=== PATIENT | female | born 1990 | race Caucasian/White ===

== ENCOUNTER 2018-03-18 17:26 | Emergency (ER) | payer OTHER ==
[2018-03-18 18:34] LABS: BASOPHILS # (AUTO) 0.1 10^3/uL (0.0-0.1); BASOPHILS % (AUTO) 0.8 %; EOSINOPHILS # (AUTO) 0.1 10^3/uL (0.0-0.7); EOSINOPHILS % (AUTO) 1.6 %; HGB - HEMOGLOBIN 13.2 g/dL (12.0-16.0); LYMPHOCYTES # (AUTO) 2.3 10^3/uL (1.5-3.5); LYMPHOCYTES % (AUTO) 27.4 %; MEAN CORPUSCULAR HEMOGLOBIN 32.5 pg (27.0-31.0); MEAN CORPUSCULAR HGB CONC 35.7 g/dL (32.0-36.0); MEAN CORPUSCULAR VOLUME 91.1 fL (81.0-99.0); MEAN PLATELET VOLUME 9.4 fL (7.9-10.8); MONOCYTES # (AUTO) 0.6 10^3/uL (0.0-1.0); MONOCYTES % (AUTO) 6.7 %; NEUTROPHILS # (AUTO) 5.4 10^3/uL (1.5-6.6); NEUTROPHILS % (AUTO) 63.5 %; PLT - PLATELET COUNT 215 10^3/uL (130-450); RED BLOOD COUNT 4.05 10^6/uL (4.20-5.40); RED CELL DISTRIBUTION WIDTH 13.3 % (12.0-15.0); WHITE BLOOD COUNT 8.4 x10^3/uL (4.8-10.8)
[2018-03-18 18:48] LABS: ALBUMIN 4.2 g/dL (3.2-5.5); ALBUMIN/GLOBULIN RATIO 1.7 (1.0-2.2); BILIRUBIN,TOTAL 1.5 mg/dL (0.2-1.0); CALCIUM 8.8 mg/dL (8.5-10.3); CREATININE 0.8 mg/dL (0.4-1.0); TOTAL PROTEIN 6.7 g/dL (6.7-8.2)
[2018-03-18 19:59] VITALS: BP 108/73
[2018-03-18] MEDS ORDERED: TRANEXAMIC ACID 1,000 MG/10 ML VIAL NAS STA (20:48)
--- NOTE | 2018-03-18 20:50 | ED Physician Documentation ---
PD HPI FEMALE - Stated complaint Stated Complaint: BLEEDING POST LEEP - Chief complaint Chief Complaint: General - History obtained from History obtained from: Patient - History of Present Illness Timing - onset: Today Timing - details: Gradual onset, Still present Associated symptoms: Vaginal bleeding Recently seen: Surgery - Additional information Additional information: Patient is a 27 year old female who is presenting to the emergency department for vaginal bleeding. patient had a recent LEEP procedure today and started bleeding this afternoon. Patient called the semiconductor lab technician doctor at the [facility] who stated some bleeding was normal. patient continued to bleed with about a pad an hour so came to the emergency department for evaluation. 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 - Present Medications Home Medications: Ambulatory Orders Medication Instructions Recorded Confirmed No Known Home Medications 03/18/18 03/18/18 - Allergies Allergies/Adverse Reactions: Allergies Allergy/AdvReac Type Severity Reaction Status Date / Time codeine Allergy Emesis Verified 03/18/18 18:15 - Social History Does the pt smoke?: No Smoking Status: Never smoker Does the pt drink ETOH?: No Does the pt have substance abuse?: No - Immunizations Immunizations are current?: Yes PD ED PE NORMAL - Vitals Vital signs reviewed: Yes - General General: Alert and oriented X 3 - HEENT HEENT: Atraumatic - Cardiac Cardiac: RRR - Respiratory Respiratory: No respiratory distress - Derm Derm: Normal color - Extremities Extremities: No deformity - Neuro Neuro: Alert and oriented X 3 PD ED PE EXPANDED - Female Female : Skin lesions, Vaginal Bleeding, Other (1cm by 1.5cm area of partially coagulated area of bleeding, clots in the vault with no significant active bleeding) Results - Vitals Vitals: Vital Signs - 24 hr 03/18/18 03/18/18 17:42 19:59 Temperature 36.9 C Heart Rate 87 71 Respiratory 16 14 Rate Blood Pressure 109/78 108/73 O2 Saturation 99 99 Oxygen O2 Source Room air - Labs Labs: Laboratory Tests 10/03/18 10/03/18 10/03/18 18:10 18:10 18:10 WBC 8.4 RBC 4.05 L Hgb 13.2 Hct 37.0 MCV 91.1 MCH 32.5 H MCHC 35.7 RDW 13.3 Plt Count 215 MPV 9.4 Neut # (Auto) 5.4 Lymph # (Auto) 2.3 [place] # (Auto) 0.6 Eos # (Auto) 0.1 Baso # (Auto) 0.1 Absolute Nucleated RBC 0.01 Nucleated RBC % 0.1 Sodium 137 Potassium 3.7 Chloride 103 Carbon Dioxide 28 Anion Gap 6.0 BUN 12 Creatinine 0.8 Estimated GFR (MDRD) 87 L Glucose 102 H Calcium 8.8 Total Bilirubin 1.5 H AST 20 ALT 13 Alkaline Phosphatase 42 Total Protein 6.7 Albumin 4.2 Globulin 2.5 Albumin/Globulin Ratio 1.7 Lipase 35 Blood Type A POSITIVE Antibody Screen NEGATIVE PD MEDICAL DECISION MAKING - ED course Complexity details: reviewed old records, reviewed results, re-evaluated patient, considered differential, d/w patient, d/w technical marketing consultant ED course: Patient was seen and examined at bedside. labs were drawn. Pelvic exam was performed and showed multiple clots in the vaginal vault but minimal active vaginal bleeding. patient's hemoglobin and hematocrit were within normal limits. patient's case was discussed with semiconductor lab technician OB, Dr. Gomes who recommended topical txa. blood clots were removed and patient was treated with topical txa. patient had no active bleeding at discharge and was stable for outpatient follow up. - Sepsis Event Vital Signs: Vital Signs - 24 hr 03/18/18 03/18/18 17:42 19:59 Temperature 36.9 C Heart Rate 87 71 Respiratory 16 14 Rate Blood Pressure 109/78 108/73 O2 Saturation 99 99 Oxygen O2 Source Room air Departure - Departure Disposition: 01 Home, Self Care Clinical Impression: Surgical complication Condition: Good Instructions: LEEP Follow-Up: Thierry Zacarias DO [Primary Care Provider] - Tomorrow Comments: it seems as if your bleeding has stopped. there might be some mild bleeding for the next few days. You should follow up with your ob doctor tomorrow for re- evaluation. You may return to the emergency department at any time for new, worsening or uncontrollable symptoms. Discharge Date/Time: 03/18/18 21:37
== END 2018-03-18 21:37 | disposition home or self-care (01) ==
LOC: ED 17:26
DX: N99.821 Postprocedural hemorrhage of a genitourinary system organ or structure following other procedure (principal); Y83.8 Other surgical procedures as the cause of abnormal reaction of the patient, or of later complication, without mention of misadventure at the time of the procedure
CPT/HCPCS: 36415; 80053; 83690; 85025; 86850; 86900; 86901; 99283